=== PATIENT | female | born 1935 | race Two or more races ===

== ENCOUNTER 2017-08-25 13:51 | Outpatient (CLI) | payer OTHER | END 2017-08-25 16:35 | disposition home or self-care (01) | LOC: SONOGRAMA 13:51 | DX: N60.11 Diffuse cystic mastopathy of right breast (principal); N60.12 Diffuse cystic mastopathy of left breast; N63.11 Unspecified lump in the right breast, upper outer quadrant ==

== ENCOUNTER → 2017-09-29 | Day surgery (SDC) | payer OTHER ==
[~2017-09-29] MED LIST: GLIPIZIDE ER2.5 MG PO; SYNTHROID100 MCG PO
== END | disposition home or self-care (01) ==
LOC: CIR.AMB 06:08
DX: D24.1 Benign neoplasm of right breast (principal)